=== PATIENT | male | born 1980 | race Caucasian/White ===

== ENCOUNTER 2020-05-25 11:30 | Outpatient (REF) | payer MEDICARE, MEDICAID, SELFPAY | END 2020-05-25 11:31 | disposition home or self-care (01) | LOC: HO.WFDLDS 11:30 | PROVIDERS: Visit Provider Internal Medicine | DX: Z20.828 Contact with and (suspected) exposure to other viral communicable diseases (principal) | CPT/HCPCS: 36415; U0003 ==